=== PATIENT | female | born 1955 | race Caucasian/White ===

== ENCOUNTER 2018-11-30 14:52 | Emergency (ER) | payer MEDICARE ==
[~2018-11-30] VITALS: Ht 172.7 cm; Wt 125.0 kg
[2018-11-30] MEDS ORDERED: triamcinolone acetonide 40mg/ml inj IM ONE (15:25)
[2018-11-30] MEDS ORDERED: ketorolac tromethamine 15mg/ml inj. IM ONE (15:25)
[2018-11-30 16:05] VITALS: BP 125/66
== END 2018-11-30 16:07 | disposition home or self-care (01) ==
LOC: ER 14:53
DX: S76.011A Strain of muscle, fascia and tendon of right hip, initial encounter (principal); S86.811A Strain of other muscle(s) and tendon(s) at lower leg level, right leg, initial encounter; Z88.5 Allergy status to narcotic agent; X50.1XXA Overexertion from prolonged static or awkward postures, initial encounter; Y93.89 Activity, other specified; Y92.89 Other specified places as the place of occurrence of the external cause; Y99.8 Other external cause status
CPT/HCPCS: 96372; 99284; J1885; J3301